=== PATIENT | male | born 1975 | race Asian ===

== ENCOUNTER 2023-04-04 15:21 | Outpatient (CLI) | payer OTHER, SELFPAY | END 2023-04-04 15:22 | disposition home or self-care (01) | PROVIDERS: PCP Family Medicine; Visit Provider Family Medicine | DX: Z00.00 Encounter for general adult medical examination without abnormal findings (principal); Z13.6 Encounter for screening for cardiovascular disorders; Z13.9 Encounter for screening, unspecified | CPT/HCPCS: 80048; 80061; 85025 ==

== ENCOUNTER 2023-06-30 16:02 | Outpatient (CLI) | payer OTHER, SELFPAY ==
[2023-06-30 23:00] LABS: Chlamydia DNA Amplified* NOT DETECTED (No Detected); GC DNA Amplified* NOT DETECTED (No Detected)
== END 2023-06-30 16:03 | disposition home or self-care (01) ==
PROVIDERS: PCP Family Medicine; Visit Provider Family Medicine
DX: R35.0 Frequency of micturition (principal)
CPT/HCPCS: 84153; 87491; 87591